=== PATIENT | male | born 1960 | race Caucasian/White ===

== ENCOUNTER 2023-07-04 06:55 | Emergency (ER) | payer OTHER ==
[~2023-07-04] VITALS: Ht 193 cm; Wt 113.0 kg
[2023-07-04 07:10] VITALS: TEMP 99
[2023-07-04] MEDS ORDERED: methylPREDNISolone sod succ 125mg/2ml vial IV ONE (07:15)
[2023-07-04] MEDS ORDERED: diphenhydrAMINE 50 mg/ml inj IV ONE (07:15)
[2023-07-04] MEDS ORDERED: famotidine/PF 10 mg/ml inj IV ONE (07:15)
[2023-07-04] MEDS ORDERED: normal saline 1000ML IV soln IVB ONE (07:15)
--- NOTE | 2023-07-04 07:51 | NUR ---
rn unable to obtain blood for labs from iv. lab will need to see pt.
[2023-07-04 08:35] LABS: BASOPHILS # (AUTO) 0.1 X10'3 (0-0.2); BASOPHILS % (AUTO) 0.9 % (0-1); EOSINOPHILS # (AUTO) 0.2 X10'3 (0-0.9); EOSINOPHILS % (AUTO) 1.3 % (0-6); HEMATOCRIT 45.9 % (42.0-52.0); HEMOGLOBIN 15.3 g/dl (14.0-17.9); LYMPHOCYTES # (AUTO) 1.7 X10'3 (1.1-4.8); LYMPHOCYTES % (AUTO) 12.8 % (21-51); MEAN CORPUSCULAR HEMOGLOBIN 30.8 PG (27.0-31.0); MEAN CORPUSCULAR HGB CONC 33.3 g/dL (33.0-36.5); MEAN CORPUSCULAR VOLUME 92.6 FL (78-98); MEAN PLATELET VOLUME 8.9 FL (7.4-10.4); MONOCYTES # (AUTO) 1.6 X10'3 (0-0.9); MONOCYTES % (AUTO) 12.1 % (2-12); NEUTROPHILS # (AUTO) 9.6 X10'3 (1.8-7.7); NEUTROPHILS % (AUTO) 72.9 % (42-75); PLATELET COUNT 144 X10'3 (140-440); RED BLOOD COUNT 4.96 X10'6 (4.70-6.10); RED CELL DISTRIBUTION WIDTH 15.1 % (11.5-14.5); WHITE BLOOD COUNT 13.2 X10'3 (4.5-11.0)
[2023-07-04 09:06] LABS: BILIRUBIN,URINE NEGATIVE (Neg); CLARITY,URINE CLEAR (Clear); COLOR,URINE YELLOW (Yellow); GLUCOSE, URINE NEGATIVE (Neg); KETONES,URINE NEGATIVE (Neg); LEUKOCYTE ESTERASE ,URINE NEGATIVE (Neg); NITRITES, URINE NEGATIVE (Neg); OCCULT BLOOD,URINE NEGATIVE (Neg); PROTEIN,URINE NEGATIVE (Neg); UROBILINOGEN,URINE 0.2 E.U/dL (0.2-1.0)
[2023-07-04 09:08] LABS: UA COLLECTION TYPE VOIDED
[2023-07-04 09:10] LABS: ALANINE AMINOTRANSFERASE 57 U/L (12-78); ALBUMIN/GLOBULIN RATIO 0.6 (1.1-1.5); ALKALINE PHOSPHATASE 41 IU/L (46-116); ANION GAP 8 (8-16); ASPARTATE AMINO TRANSFERASE 52 U/L (10-37); BLOOD UREA NITROGEN 10 MG/DL (7-18); BUN/CREATININE RATIO 5.4 (10.0-20.0); CALCIUM 8.5 MG/DL (8.5-10.1); CHLORIDE 98 MMOL/L (99-107); CREATININE 1.84 MG/DL (0.60-1.10); GLUCOSE 100 MG/DL (70-104); POTASSIUM 4.1 MMOL/L (3.5-5.1); SODIUM 132 MMOL/L (135-145); TOTAL CARBON DIOXIDE 26.5 MMOL/L (24-32); TOTAL PROTEIN 7.8 G/DL (6.4-8.2); eCRCL 50 ML/MIN; eGFR 37 ML/MIN
[2023-07-04 09:18] LABS: C-REACTIVE PROTEIN 1.51 MG/DL (0.0-0.5); PRO BRAIN NATRIURETIC PEPTIDE 144 PG/ML (0-125)
[2023-07-04] MEDS ORDERED: acetaminophen 1,000mg/100ml IV 100 ML IV STA (09:49)
--- NOTE | 2023-07-04 09:50 | NUR ---
rn notified DR HODGSON THAT PT IS HAVING NECK AND LOWER BACK PAIN. PER DR HODGSON HE WILL PLACE ORDS.
[2023-07-04] MEDS ORDERED: PRED20TA PO (09:58)
[2023-07-04] MEDS ORDERED: DOXY100C43 PO (09:58)
[2023-07-04 10:04] VITALS: BP 138/98; PULSE 79; RESP 14; O2SAT 96
== END 2023-07-04 10:47 | disposition home or self-care (01) ==
LOC: ER 06:55
DX: J40 Bronchitis, not specified as acute or chronic (principal); T78.40XA Allergy, unspecified, initial encounter; F17.210 Nicotine dependence, cigarettes, uncomplicated; Z79.2 Long term (current) use of antibiotics; Z79.899 Other long term (current) drug therapy; X58.XXXA Exposure to other specified factors, initial encounter
CPT/HCPCS: 36415; 71045; 80053; 81003; 82948; 83880; 84145; 84484; 85025; 86140; 93005; 96361; 96374; 96375; 99285; J0131; J1200; J2930; J3490; J7030

== ENCOUNTER 2023-07-09 16:12 | Emergency (ER) | payer OTHER ==
[~2023-07-09] VITALS: Ht 193 cm; Wt 118.2 kg
[~2023-07-09 16:12] MED LIST: DOXY100C43 PO; PRED20TA PO
[2023-07-09 16:22] VITALS: TEMP 99.7
[2023-07-09 16:47] LABS: BASOPHILS % (AUTO) 0.2 % (0-1); EOSINOPHILS % (AUTO) 0.2 % (0-6); HEMATOCRIT 49.9 % (42.0-52.0); HEMOGLOBIN 16.7 g/dl (14.0-17.9); LYMPHOCYTES # (AUTO) 1.2 X10'3 (1.1-4.8); LYMPHOCYTES % (AUTO) 11.2 % (21-51); MEAN CORPUSCULAR HEMOGLOBIN 30.9 PG (27.0-31.0); MEAN CORPUSCULAR HGB CONC 33.6 g/dL (33.0-36.5); MEAN CORPUSCULAR VOLUME 92.1 FL (78-98); MEAN PLATELET VOLUME 8.4 FL (7.4-10.4); MONOCYTES # (AUTO) 0.5 X10'3 (0-0.9); MONOCYTES % (AUTO) 4.5 % (2-12); NEUTROPHILS % (AUTO) 83.9 % (42-75); PLATELET COUNT 240 X10'3 (140-440); RED BLOOD COUNT 5.42 X10'6 (4.70-6.10); RED CELL DISTRIBUTION WIDTH 15.7 % (11.5-14.5); WHITE BLOOD COUNT 10.7 X10'3 (4.5-11.0)
[2023-07-09 17:00] LABS: ALANINE AMINOTRANSFERASE 69 U/L (12-78); ALBUMIN 3.5 G/DL (3.4-5.0); ALBUMIN/GLOBULIN RATIO 0.7 (1.1-1.5); ALKALINE PHOSPHATASE 42 IU/L (46-116); ANION GAP 9 (8-16); ASPARTATE AMINO TRANSFERASE 73 U/L (10-37); BILIRUBIN,TOTAL 0.7 MG/DL (0.1-1.0); BLOOD UREA NITROGEN 12 MG/DL (7-18); BUN/CREATININE RATIO 7.2 (10.0-20.0); CALCIUM 9.3 MG/DL (8.5-10.1); CHLORIDE 98 MMOL/L (99-107); CREATININE 1.67 MG/DL (0.60-1.10); GLUCOSE 109 MG/DL (70-104); POTASSIUM 4.2 MMOL/L (3.5-5.1); SODIUM 133 MMOL/L (135-145); TOTAL CARBON DIOXIDE 25.6 MMOL/L (24-32); TOTAL PROTEIN 8.8 G/DL (6.4-8.2); eCRCL 56 ML/MIN; eGFR 42 ML/MIN
[2023-07-09 17:07] LABS: PRO BRAIN NATRIURETIC PEPTIDE 215 PG/ML (0-125)
[2023-07-09] MEDS ORDERED: AMOX-580 PO (18:57)
[2023-07-09 19:30] VITALS: BP 167/102; PULSE 79; RESP 18; O2SAT 98
== END 2023-07-09 19:31 | disposition home or self-care (01) ==
LOC: ER 16:14
DX: J32.9 Chronic sinusitis, unspecified (principal); Z72.89 Other problems related to lifestyle
CPT/HCPCS: 36415; 71045; 80053; 83880; 84484; 85025; 93005; 99285